=== PATIENT | male | born 1990 | race Caucasian/White ===

== ENCOUNTER 2017-07-30 09:03 | Emergency (ER) | payer BC ==
[2017-07-30] MEDS ORDERED: Ibuprofen 800 MG TAB ONE (10:15)
[2017-07-30 10:58] LABS: Bilirubin Negative (Negative); Blood, Urine Negative (Negative); Glucose, Urine (Dipstick) Negative (Negative); Leukocyte Negative (Negative); Nitrite Negative (Negative); Protein, Urine (Dipstick) Negative (Neg-Trace); Urobilinogen 0.2 mg/dL (0.2-1.0)
[2017-07-30 11:01] LABS: Clarity Clear (Clear)
--- NOTE | 2017-07-30 11:29 | ULT ---
TESTICULAR ULTRASOUND: Date: 07/30/17 HISTORY: Right-sided testicular pain. FINDINGS: Real-time imaging of the right and left testes performed. The right testicle measures 4.6 cm and the left testicle is also 4.6 cm in size. Right and left epididymal regions are unremarkable, other than a 5.0 mm epididymal cyst. DOPPLER EVALUATION WITH SPECTRAL ANALYSIS; Normal flow is show to the testes. Incidental note is made of a left-sided varicocele. IMPRESSION: 1. No evidence of testicular injury or torsion. 2. Left-sided varicocele. POS: [facility]
== END 2017-07-30 11:27 | disposition home or self-care (01) ==
LOC: ERS 09:03
DX: N50.82 Scrotal pain (principal)
CPT/HCPCS: 76870; 81003; 87086; 93976